=== PATIENT | female | born 1995 | race Caucasian/White ===

== ENCOUNTER 2018-04-13 08:24 | Emergency (ER) | payer OTHER ==
[~2018-04-13] VITALS: Ht 170.2 cm; Wt 114.8 kg
[2018-04-13 08:33] VITALS: BP 135/81; Ht 170.2 cm; Wt 114.8 kg
== END 2018-04-13 09:23 | disposition home or self-care (01) ==
LOC: ED 08:24
DX: J98.01 Acute bronchospasm (principal)
CPT/HCPCS: J7613; J7644; Q0092